=== PATIENT | male | born 2000 | race Caucasian/White ===

== ENCOUNTER 2023-11-08 15:42 | Emergency (ER) | payer OTHER, SELFPAY ==
--- NOTE | ~2023-11-08 | XR_ITS ---
EXAM: XR wrist LT min 3V DATE: 11/08/2023 16:05 HISTORY: left ulnar wrist pain s/p hit with baseball . COMPARISON: None available. FINDINGS: Normal mineralization. No fracture or dislocation. No lytic or blastic lesion. Joint space s are maintained. No erosion or periosteal change. Soft tissues within normal limits. IMPRESSION: No acute osseous finding in the left wrist. Reviewed, dictated and finalized at location K. R WORKER
[2023-11-08 15:54] VITALS: BP 148/94; PULSE 65; RESP 16; TEMP 37; O2SAT 99
--- NOTE | 2023-11-08 16:03 | ED.UPPEXIN ---
HPI - Extremity Injury (Upper) General Chief Complaint: Extremity Injury, Upper Stated Complaint: Left Wrist Pain Time Seen by Provider: 11/08/23 16:03 Source: patient Mode of arrival: ambulatory Limitations: no limitations History of Present Illness HPI narrative: 23 yo M presents with c/o pain to L wrist with bruising and swelling. Pt hit in wrist with baseball yesterday. ROM intact. 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 Wants to make sure no fracture. All systems reviewed and negative except as noted above. Review of Systems Review of Systems: CONSTITUTIONAL: Denies fever, chills, or sweats. EYES: Denies visual changes, redness, or discharge. ENT: Denies rhinorrhea, congestion, sore throat, or otalgia. CARDIOVASCULAR: Denies chest pain, palpitations, or edema. RESPIRATORY: Denies cough or dyspnea. GASTROINTESTINAL: Denies abdominal pain, nausea, vomiting, or diarrhea. GENITOURINARY: Denies dysuria or hematuria. SKIN: Denies rash or itching. MUSCULOSKELETAL: Denies back pain or myalgia. Reports pain and swelling to left wrist. NEUROLOGIC: Denies headache, numbness, or weakness. PSYCHIATRIC: Denies anxiety or depression. All other systems reviewed are negative, except as documented in HPI. PMFSH Comments At time of signature, agree with nursing past medical, surgical, social and family history. There is no relevant family history pertinent to the presenting complaint. Exam Narrative: GENERAL: This is a well-nourished, well-developed patient, in no apparent distress. HEAD: normocephalic, atraumatic. EYES: PERRL. Sclera clear/white. Vision is grossly intact. EARS: External ears normal NOSE: External nose normal NECK: Neck supple, non-tender without lymphadenopathy, masses or thyromegaly. CARDIOVASCULAR: Regular rate and rhythm without murmurs, gallops, or rubs. RESPIRATORY: Clear to auscultation. Breath sounds equal bilaterally. No wheezes, rales, or rhonchi. SKIN: warm, Dry, intact with no suspicious lesions or rash, good texture and turgor. NEURO: awake, alert, and oriented to person, place and time. There were no obvious focal neurologic abnormalities. EXTREMITIES: contusion to lateral aspect L wrist. bruising and swelling noted. no deformity. ROM and distal NV intact. Course Course Level of Care: Express Care Visit Vital Signs Vital signs: Vital Signs Temperature 37.0 C 11/08/23 15:54 Pulse Rate 65 11/08/23 15:54 Respiratory Rate 16 11/08/23 15:54 Blood Pressure 148/94 H 11/08/23 15:54 Pulse Oximetry 99 11/08/23 15:54 Oxygen Delivery Room Air 11/08/23 15:54 Temperature 37.0 C 11/08/23 15:54 Pulse Rate 65 11/08/23 15:54 Respiratory Rate 16 11/08/23 15:54 Blood Pressure 148/94 H 11/08/23 15:54 Pulse Oximetry 99 11/08/23 15:54 Oxygen Delivery Room Air 11/08/23 15:54 Reviewed MDM - Extremity Injury (Upper) MDM Narrative Medical decision making narrative: left wrist x-ray negative for fracture. Discussed results with patient. Patient will continue ibuprofen, ice and Anup wrap. Will follow up with primary care physician if pain not improving. 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 Patient is aware of diagnosis, understands and agrees to treatment plan. Anticipatory guidance given. Patient agrees to follow-up as directed and is aware of reasons to seek care at the emergency department. Portions of this record may have been created with voice recognition software Imaging Data My impression: agree with radiologist Radiologist's impression: EXAM:? XR wrist LT min 3V DATE: 11/08/2023 16:05 HISTORY: left ulnar wrist pain s/p hit with baseball . COMPARISON:? None available. FINDINGS:? Normal mineralization. No fracture or dislocation. No lytic or blastic lesion. Joint spaces are maintained. No erosion or periosteal change. Soft tissues within normal limits. IMPRESSION: No acute osseous finding in the left wrist. Discharge Plan Disch
== END 2023-11-08 16:23 | disposition home or self-care (01) ==
PROVIDERS: Emergency Provider Nurse Practitioner Family
DX: S60.212A Contusion of left wrist, initial encounter (principal); W21.03XA Struck by baseball, initial encounter; Y93.64 Activity, baseball
CPT/HCPCS: 73110; 99203; G0463